=== PATIENT | male | born 1960 | race American Indian/Alaskan Native ===

== ENCOUNTER 2016-11-28 12:00 | Emergency (ER) | payer SELFPAY ==
[2016-11-28 12:15] VITALS: BP 158/108
[2016-11-28] MEDS ORDERED: XYLOCAINE 2%/EPI 1:100,000 INFILTRATI ONE (12:57)
[2016-11-28] MEDS ORDERED: BOOSTRIX IM ONE (12:58)
[2016-11-28] MEDS ORDERED: NORCO 5/325 PO ONE (12:58)
--- NOTE | 2016-11-28 14:50 | Emergency Department Report ---
ED Laceration HPI - HPI Chief Complaint: Wound/Laceration Stated Complaint: RT HAND INJURY Time Seen by Provider: 11/28/16 12:52 Occurred When: Today Location: Upper Extremity Severity: moderate Tetanus Status: Not up to Date Laceration Symptoms: Yes Pain, No Foreign Body Sensation, No Numbness, No Weakness Other History: 56-year-old male past medical history hypertension presents with complaint of laceration to right lateral wrist region. 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 Patient states this opened up a laceration in his right wrist. Patient states this happened possibly 4 hours ago. She denies any other injuries. Denies any head injuries no other lacerations. Patient does not know if his tetanus status is up-to-date. ED Review of Systems ROS: Stated complaint: RT HAND INJURY Other details as noted in HPI Constitutional: denies: chills, fever Eyes: denies: eye pain, eye discharge, vision change ENT: denies: ear pain, throat pain Respiratory: denies: cough, shortness of breath, wheezing Cardiovascular: denies: chest pain, palpitations Endocrine: no symptoms reported Gastrointestinal: denies: abdominal pain, nausea, diarrhea Genitourinary: denies: urgency, dysuria Musculoskeletal: denies: back pain, joint swelling, arthralgia Skin: denies: rash, lesions Neurological: denies: headache, weakness, paresthesias Psychiatric: denies: anxiety, depression Hematological/Lymphatic: denies: easy bleeding, easy bruising ED Past Medical Hx - Past Medical History Previous Medical History?: No - Surgical History Past Surgical History?: No - Social History Smoking Status: Never Smoker Substance Use Type: Alcohol - Medications Home Medications: Home Medications Medication Instructions Recorded Confirmed Last Taken Type Cephalexin [Keflex] 500 mg PO Q12HR #14 cap 11/28/16 Unknown Rx Ibuprofen [Motrin] 600 mg PO Q8H PRN #25 tablet 11/28/16 Unknown Rx Laceration Physical Exam - Exam General: Vital signs noted. No distress. Alert and acting appropriately. Wound Length (cm): 5 Laceration Exam: Yes Tendon Injury, Yes Normal Distal CMS, No Foreign Body, No Exposed Tendon, Vessel, or Nerve ED Course Vital Signs 11/28/16 12:12 Temperature 98.7 F Pulse Rate 74 Respiratory 18 Rate Blood Pressure 158/108 O2 Sat by Pulse 97 Oximetry - Laceration /Wound Repair Right Lateral Palm Wrist Wound Length (cm): 4 Wound's Depth, Shape: into muscle, linear Irrigated w/ Saline (ccs): 2,000 Betadine Prep?: Yes Anesthesia: Lidocaine w/ Epi Volume Anesthetic (ccs): 8 Wound Debrided: minimal Wound Repaired With: sutures Suture Size/Type: 3:0, proline Number of Sutures: 10 Layer Closure?: Yes Deep Layer Suture Size/Type: 5:0, chromic Number Deep Layer Sutures: 5 Sterile Dressing Applied?: Yes (triple antibiotic ointment placed and outside of suture area with sterile g) Progress: Procedure tolerated well. There was some bleeding and oozing which was controlled via suture ligation with deep sutures, chromic gut used. 5 deep sutures placed. On examination patient has full range of motion right hand wrist and fingers. Distal capillary refill in all fingers fully intact. Distal radial pulse strong and intact. There was exposure of some tendon attending does not appear lacerated and given patient's ability to flex and extend wrist against resistance is unlikely that he damaged tendon. ED Medical Decision Making - Medical Decision Making A/P: Wrist laceration 1-tetanus updated today 2-no signs of neurovascular compromise on clinical exam of right wrist 3-10 proline 3-0 sutures placed externally, 5 4-0 chromic gut placed deep. Sterile gauze and wrist splint placed over for protection/support 4-x-ray shows no fractures 5-to be removed in approximately 10 days 6- return when necessary for pain, Keflex 500 mg twice a day 7 days 7- provided patient with follow-up with orthopedics follow-up. There are no signs of neurovascular compromise but there was exposed tendon, I advised patient to call for follow-up as soon as possible. Critical care attestation.: If time is entered above; I have spent that time in minutes in the direct care of this critically ill patient, excluding procedure time. ED Disposition Clinical Impression: Laceration of wrist Qualifiers: Encounter type: initial encounter Laterality: right Qualified Code(s): S61.511A - Laceration without foreign body of right wrist, initial encounter Disposition: DISCHARGED TO HOME OR SELFCARE Is pt being admited?: No Does the pt Need Aspirin: No Condition: Stable Instructions: Suture Care (ED), Laceration (ED), Absorbable Suture Care (ED), Diphtheria/Tetanus Vaccine (Injection) Prescriptions: Cephalexin [Keflex] 500 mg PO Q12HR #14 cap Ibuprofen [Motrin] 600 mg PO Q8H PRN #25 tablet PRN Reason: Pain Referrals: PRIMARY MD KASIE [Primary Care Provider] - 3-5 Days HUSSAIN WILSON MD [Staff Physician] - 3-5 Days Forms: Work/School Release Form(ED) Time of Disposition: 15:54
--- NOTE | 2016-11-28 16:46 | XRay Report ---
RIGHTWRIST: Routine views demonstrate the carpal bones to be well mineralized with well preserved bony mineralization and interosseous joint spaces. The carpal and adjacent articular bones have normal contours. The surrounding soft tissues are unremarkable. IMPRESSION: Normal study.
== END 2016-11-28 16:11 | disposition home or self-care (01) ==
LOC: ED 12:00
DX: S61.511A Laceration without foreign body of right wrist, initial encounter (principal); W01.0XXA Fall on same level from slipping, tripping and stumbling without subsequent striking against object, initial encounter; Y93.9 Activity, unspecified; Y92.9 Unspecified place or not applicable; Y99.9 Unspecified external cause status
CPT/HCPCS: 90471; 90715